=== PATIENT | male | born 1945 | race Caucasian/White ===

== ENCOUNTER → 2016-08-06 | Outpatient (RCR) | payer MEDICARE ==
--- OUTSIDE RECORDS SUMMARY | 2016-05-08 08:45 | XMS REPORT | Continuity of Care Document ---
Author Author [facility] Organization [facility] Address Unknown Phone Unavailable Care Team Providers Care Fresh Foods Technician Name Role Phone SHRADDHA PALENCIA MD PCP Insurance Providers Payer Name Policy Number Subscriber Name Relationship W[employer] Medicare [id number] Fantasma Duncan 16 Self / Same As Patient Advance Directives Directive Response Recorded Date/Time Advance Directives No 04/25/16 10:16am Health Care Power of Vision Teacher No 04/25/16 10:16am Organ Donor No 04/25/16 10:16am Resuscitation Status Full Code 04/25/16 10:16am Problems No problem information available. Medications Current Home Medications Medication Dose Units Route Directions Days/Qty Instructions Start Date Cyproheptadine Hcl 4 Mg 0.5 Tab Oral Four Times Daily 04/25/16 Glipizide 10 Mg 1 Tab Oral Twice A Day 04/25/16 Sodium Bicarbonate/Sodium Cit 1 Each 1 Each Oral As Directed Pioglitazone Hcl 45 Mg 1 Tab Oral Daily 04/25/16 Hydrochlorothiazide 25 Mg 1 Tab Oral Daily 04/25/16 Metoprolol Succinate 50 Mg 1 Tab Oral Twice A Day 04/25/16 Diltiazem Hcl 360 Mg 1 Cap Oral Daily 04/25/16 Insulin Degludec 100 Unit/1 Ml 16 Unit Sub-Q Daily 04/25/16 Social History Social History Problem Response Recorded Date/Time Alcohol Use Denies Use 04/25/2016 10:09am Recreational Drug Use No 04/25/2016 10:09am Recent Foreign Travel No 04/25/2016 10:06am Recent Infectious Disease Exposure No 04/25/2016 10:06am Smoking Status Never a Smoker 04/25/2016 10:09am Recent Hopitalizations No 04/25/2016 10:09am Query Response Start Date Stop Date Smoking Status Never a Smoker Hospital Discharge Instructions No hospital discharge instructions. Plan of Care Discharge Date 04/25/16 2:00pm Instructions/Education Provided BIOPSY DISCHARGE INSTRUCTIONS Prescriptions See Medication Section Functional Status Query Response Date Recorded Patient Orientation Person Place Time Situation Normal For Age April 25, 2016 2:14pm Allergies, Adverse Reactions, Alerts No known allergies. Immunizations No immunization records. Vital Signs Acute Vital Signs Vital Response Date/Time Temperature (Fahrenheit) 97.7 degrees F (97.6 - 99.5) 04/25/2016 2:00pm Temperature (Calculated Celsius) 36.62130 degrees C (36.4 - 37.5) 04/25/2016 2:00pm Temperature Source Temporal 04/25/2016 2:00pm Pulse Rate (adult) 77 bpm (60 - 90) 04/25/2016 2:00pm Respiratory Rate 16 bpm (12 - 24) 04/25/2016 2:00pm O2 Sat by Pulse Oximetry 99 % (88 - 100) 04/25/2016 2:00pm Blood Pressure 141/87 mm Hg 04/25/2016 2:00pm Blood Pressure Mean 105 mm Hg 04/25/2016 2:00pm Blood Pressure 141/87 mm Hg 04/25/2016 2:00pm Pain Numeric Pain Scale 0-No Pain 04/25/2016 2:00pm Pain Numeric Pain Scale 0-No Pain 04/25/2016 2:00pm Height (Feet) 5 feet 04/25/2016 2:00pm Height (Inches) 9.00 inches 04/25/2016 2:00pm Height (Calculated Centimeters) 175.401192 cm 04/25/2016 2:00pm Weight (Pounds) 165 pounds 04/25/2016 2:00pm Weight (Ounces) 0.0 oz 04/25/2016 2:00pm Weight (Calculated Grams) 56261.742 gm 04/25/2016 2:00pm Weight (Calculated Kilograms) 74.691246 kilograms 04/25/2016 2:00pm Calculated BMI 24.4 04/25/2016 10:09am Capillary Refill Capillary Refill Less Than 3 Seconds 04/25/2016 2:00pm Results Pending Laboratory Results Test Name Collection Date/Time Procedures No known history of procedures. Encounters Encounter Location Arrival/Admit Date Discharge/Depart Date Attending Provider Departed [facility] 04/25/16 8:19am 2:00pm SHRADDHA PALENCIA MD Registered Clinic [facility] 04/10/16 7:44am KYM MEEHAN
[2016-07-16 09:52] LABS: BASOPHILS # (AUTO) 0.1 10^3/uL (0.0-0.1); BASOPHILS % (AUTO) 1 % (0-10); EOSINOPHILS # (AUTO) 0.4 10^3/uL (0.0-0.3); EOSINOPHILS % (AUTO) 7 % (0-10); LYMPHOCYTES # (AUTO) 1.4 X 10^3 (1.0-4.0); LYMPHOCYTES % (AUTO) 25 % (12-44); MEAN CORPUSCULAR HEMOGLOBIN 31 PG (25-34); MEAN CORPUSCULAR HGB CONC 32 G/DL (32-36); MEAN CORPUSCULAR VOLUME 95 FL (80-99); MEAN PLATELET VOLUME 8.8 FL (7.4-10.4); MONOCYTES # (AUTO) 0.9 X 10^3 (0.0-1.0); MONOCYTES % (AUTO) 15 % (0-12); NEUTROPHILS # (AUTO) 2.9 X 10^3 (1.8-7.8); NEUTROPHILS % (AUTO) 51 % (42-75); PLATELET COUNT 151 10^3/uL (130-400); RED BLOOD COUNT 2.84 10^6/uL (4.35-5.85); RED CELL DISTRIBUTION WIDTH 15.4 % (10.0-14.5); WHITE BLOOD COUNT 5.6 10^3/uL (4.3-11.0)
[2016-07-16 10:50] LABS: ALANINE AMINOTRANSFERASE < 6 U/L (0-55); ANION GAP 10 MMOL/L (5-14); ASPARTATE AMINO TRANSFERASE 14 U/L (5-34); BILIRUBIN,TOTAL 0.5 MG/DL (0.1-1.0); BLOOD UREA NITROGEN 35 MG/DL (7-18); BUN/CREATININE RATIO 10; CARBON DIOXIDE 29 MMOL/L (21-32); CHLORIDE 100 MMOL/L (98-107); CREATININE SERUM 3.41 MG/DL (0.60-1.30); GFR ESTIMATED 18; GLUCOSE 268 MG/DL (70-105); POTASSIUM 4.1 MMOL/L (3.6-5.0); SODIUM 139 MMOL/L (135-145); TOTAL PROTEIN 6.6 G/DL (6.4-8.2)
[2016-07-23 11:35] LABS: BASOPHILS # (AUTO) 0.1 10^3/uL (0.0-0.1); BASOPHILS % (AUTO) 1 % (0-10); EOSINOPHILS # (AUTO) 0.4 10^3/uL (0.0-0.3); EOSINOPHILS % (AUTO) 7 % (0-10); LYMPHOCYTES # (AUTO) 1.8 X 10^3 (1.0-4.0); LYMPHOCYTES % (AUTO) 30 % (12-44); MEAN CORPUSCULAR HEMOGLOBIN 31 PG (25-34); MEAN CORPUSCULAR HGB CONC 32 G/DL (32-36); MEAN CORPUSCULAR VOLUME 96 FL (80-99); MEAN PLATELET VOLUME 8.6 FL (7.4-10.4); MONOCYTES % (AUTO) 17 % (0-12); NEUTROPHILS # (AUTO) 2.7 X 10^3 (1.8-7.8); NEUTROPHILS % (AUTO) 45 % (42-75); PLATELET COUNT 166 10^3/uL (130-400); RED BLOOD COUNT 2.86 10^6/uL (4.35-5.85); RED CELL DISTRIBUTION WIDTH 15.9 % (10.0-14.5)
[2016-07-30 10:54] LABS: BASOPHILS # (AUTO) 0.1 10^3/uL (0.0-0.1); BASOPHILS % (AUTO) 1 % (0-10); EOSINOPHILS # (AUTO) 0.4 10^3/uL (0.0-0.3); EOSINOPHILS % (AUTO) 6 % (0-10); LYMPHOCYTES # (AUTO) 1.6 X 10^3 (1.0-4.0); LYMPHOCYTES % (AUTO) 25 % (12-44); MEAN CORPUSCULAR HEMOGLOBIN 31 PG (25-34); MEAN CORPUSCULAR HGB CONC 32 G/DL (32-36); MEAN CORPUSCULAR VOLUME 97 FL (80-99); MEAN PLATELET VOLUME 8.7 FL (7.4-10.4); MONOCYTES # (AUTO) 0.9 X 10^3 (0.0-1.0); MONOCYTES % (AUTO) 14 % (0-12); NEUTROPHILS # (AUTO) 3.6 X 10^3 (1.8-7.8); NEUTROPHILS % (AUTO) 55 % (42-75); PLATELET COUNT 166 10^3/uL (130-400); RED BLOOD COUNT 2.95 10^6/uL (4.35-5.85); RED CELL DISTRIBUTION WIDTH 16.7 % (10.0-14.5); WHITE BLOOD COUNT 6.5 10^3/uL (4.3-11.0)
[~2016-08-06] MED LIST: CYPR4TAB PO; DARBEPOETIN 40 MCG/ML (ARANESP) 1 ML VIAL SC SCH; DILT360C30 PO; GLIP10TA13 PO; HYDR25TA4 PO; INSU100I32 SQ; METO-272 PO; PIOG45TA16 PO; SODI1TAB48 PO
[2016-08-06 09:58] LABS: BASOPHILS # (AUTO) 0.1 10^3/uL (0.0-0.1); BASOPHILS % (AUTO) 1 % (0-10); EOSINOPHILS # (AUTO) 0.4 10^3/uL (0.0-0.3); EOSINOPHILS % (AUTO) 7 % (0-10); LYMPHOCYTES # (AUTO) 1.3 X 10^3 (1.0-4.0); LYMPHOCYTES % (AUTO) 21 % (12-44); MEAN CORPUSCULAR HEMOGLOBIN 31 PG (25-34); MEAN CORPUSCULAR HGB CONC 32 G/DL (32-36); MEAN CORPUSCULAR VOLUME 98 FL (80-99); MONOCYTES # (AUTO) 0.9 X 10^3 (0.0-1.0); MONOCYTES % (AUTO) 15 % (0-12); NEUTROPHILS # (AUTO) 3.6 X 10^3 (1.8-7.8); NEUTROPHILS % (AUTO) 57 % (42-75); PLATELET COUNT 155 10^3/uL (130-400); RED BLOOD COUNT 3.27 10^6/uL (4.35-5.85); RED CELL DISTRIBUTION WIDTH 17.1 % (10.0-14.5); RETICULOCYTE % 2.62 % (0.50-2.40); WHITE BLOOD COUNT 6.3 10^3/uL (4.3-11.0)
[2016-08-06 10:45] LABS: ALBUMIN 3.1 G/DL (3.2-4.5); BILIRUBIN,TOTAL 0.4 MG/DL (0.1-1.0); CREATININE SERUM 3.89 MG/DL (0.60-1.30); POTASSIUM 3.5 MMOL/L (3.6-5.0); TOTAL PROTEIN 6.6 G/DL (6.4-8.2)
[2016-08-06 11:05] LABS: THYROID STIMULATING HORMONE 2.05 UIU/ML (0.35-4.94)
== END | disposition home or self-care (01) ==
LOC: ONC 05-08 08:43
PROVIDERS: ATTEND Internal Medicine Hematology & Oncology
DX: C79.51 Secondary malignant neoplasm of bone (principal); D63.1 Anemia in chronic kidney disease; N18.4 Chronic kidney disease, stage 4 (severe)
CPT/HCPCS: 36415; 80053; 82728; 83540; 84443; 85025; 85045; 96372; 99213

== ENCOUNTER → 2016-08-14 | Outpatient (CLI) | payer MEDICARE ==
[~2016-08-14] MED LIST changes: -DARBEPOETIN 40 MCG/ML (ARANESP) 1 ML VIAL SC SCH
--- OUTSIDE RECORDS SUMMARY | 2016-08-14 10:51 | XMS REPORT | Continuity of Care Document ---
Author Author [facility] Organization [facility] Address Unknown Phone Unavailable Care Team Providers Care Manager Multicultural Name Role Phone SHRADDHA PALENCIA MD PCP Insurance Providers Payer Name Policy Number Subscriber Name Relationship Wps Medicare [id number] Fantasma Duncan 16 Self / Same As Patient Advance Directives Directive Response Recorded Date/Time Advance Directives No 04/25/16 10:16am Health Care Power of Processing Manager No 04/25/16 10:16am Organ Donor No 04/25/16 [...] - 99.5) 04/25/2016 2:00pm Temperature (Calculated Celsius) 36.23613 degrees C (36.4 - 37.5) 04/25/2016 2:00pm [...] 9.00 inches 04/25/2016 2:00pm Height (Calculated Centimeters) 175.886394 cm 04/25/2016 2:00pm Weight (Pounds) 165 pounds 04/25/2016 2:00pm Weight (Ounces) 0.0 oz 04/25/2016 2:00pm Weight (Calculated Grams) 94949.742 gm 04/25/2016 2:00pm Weight (Calculated Kilograms) 74.616318 kilograms 04/25/2016 2:00pm Calculated BMI 24.4 04/25/2016 10:09am Capillary Refill Capillary Refill Less Than 3 Seconds 04/25/2016 2:00pm Results Pending Laboratory Results Test Name Collection Date/Time Procedures No known history of procedures. Encounters Encounter Location Arrival/Admit Date Discharge/Depart Date Attending Provider Departed [facility] 04/25/16 8:19am 2:00pm SHRADDHA PALENCIA MD Registered Clinic [facility] 04/10/16 7:44am KYM MEEHAN
== END ==
LOC: RAD 10:47
PROVIDERS: ATTEND Internal Medicine Hematology & Oncology
DX: C64.9 Malignant neoplasm of unspecified kidney, except renal pelvis (principal); N18.4 Chronic kidney disease, stage 4 (severe)

== ENCOUNTER → 2016-08-21 | Outpatient (CLI) | payer MEDICARE ==
--- OUTSIDE RECORDS SUMMARY | 2016-08-21 10:38 | XMS REPORT | Continuity of Care Document ---
Author Author [facility] Organization [facility] Address Unknown Phone Unavailable Care Team Providers Care It Architecture Analyst Name Role Phone SHRADDHA PALENCIA MD PCP Insurance Providers Payer Name Policy Number Subscriber Name Relationship Wps Medicare [id number] Fantasma Duncan 16 Self / Same As Patient Advance Directives Directive Response Recorded Date/Time Advance Directives No 04/25/16 10:16am Health Care Power of Senior Linux Unix Administrator No 04/25/16 10:16am Organ Donor No 04/25/16 [...] - 99.5) 04/25/2016 2:00pm Temperature (Calculated Celsius) 36.05180 degrees C (36.4 - 37.5) 04/25/2016 2:00pm [...] 9.00 inches 04/25/2016 2:00pm Height (Calculated Centimeters) 175.438575 cm 04/25/2016 2:00pm Weight (Pounds) 165 pounds 04/25/2016 2:00pm Weight (Ounces) 0.0 oz 04/25/2016 2:00pm Weight (Calculated Grams) 14572.742 gm 04/25/2016 2:00pm Weight (Calculated Kilograms) 74.700617 kilograms 04/25/2016 2:00pm Calculated BMI 24.4 04/25/2016 10:09am Capillary Refill Capillary Refill Less Than 3 Seconds 04/25/2016 2:00pm Results Pending Laboratory Results Test Name Collection Date/Time Procedures No known history of procedures. Encounters Encounter Location Arrival/Admit Date Discharge/Depart Date Attending Provider Departed [facility] 04/25/16 8:19am 2:00pm SHRADDHA PALENCIA MD Registered Clinic [facility] 04/10/16 7:44am KYM MEEHAN
--- NOTE | 2016-08-21 15:51 | Diagnostic Imaging Report ---
EXAMINATION: PET-CT. TECHNIQUE: Serum glucose level at the time of the study is: 111 mg/dL. 13.2 mCi of FDG was administered intravenously followed by obtaining PET images with corresponding noncontrast CT scan images. The CT scan was performed for anatomic correlation and attenuation correction and was not performed according to the diagnostic protocol of the areas covered. The scan was performed from the head to mid thighs. INDICATION: Renal cell carcinoma. FINDINGS: There is symmetric FDG uptake in the brain. There is no hypermetabolic mass in the neck. There is a destructive hypermetabolic mass seen in the right scapula with a maximum SUV of 7.3. The degree of hypermetabolism is slightly increased compared to the previous exam. There is, however, significant increase in the size of the mass based on CT scan evaluation and the current maximum axial dimensions are 8 x 5.5 cm compared to 5 x 2.4 cm. There is increased bone destruction at this time involving the glenoid and the coracoid process that has worsened compared to the previous exam. There is also at this time more soft tissue fullness extension inferiorly into the axilla suggested. There is no hypermetabolic significant activity seen in the chest otherwise including a medial right upper lobe pulmonary nodule which has FDG uptake similar to background at SUV of 2. The nodule, however, has enlarged in size compared to 04/03/2016 from 0.9 cm to 1.3 cm compatible with metastatic disease. There is also a 7 mm nodule in the medial aspect of the left upper lobe possibly present but smaller on the previous exam, also likely related to metastasis. There is suggestion of other new nodules not seen previously in the lower lobes. In the abdomen and pelvis, lobulated area in the posterior aspect of the right kidney measuring 5 cm is seen and appears larger compared to the prior study. Although this is not associated with significant increased hypermetabolism compared to the rest of the kidney, this is compatible with renal cell carcinoma primary as confirmed with the pathology results. Maximum SUV value in this mass is 4.6. There is mild increased FDG uptake about the right hip with suggestion of right hip effusion. This could be inflammatory related, although early metastasis is not excluded. IMPRESSION: 1. Interval enlargement in right scapular mass and increase in size and number of pulmonary metastases. 2. Lobulated soft tissue fullness in the posterior aspect of the right kidney has increased in size and has mild increased FDG uptake, in correlation with the pathology results, is consistent with the primary renal cell carcinoma. 3. Mild increased FDG uptake at the right hip joint with suggestion of a small effusion is favored to be inflammatory, although early metastasis is not ruled out. Dictated by: Dictated on workstation # [id number]
== END ==
LOC: RAD 10:35
PROVIDERS: ATTEND Internal Medicine Hematology & Oncology
DX: C64.9 Malignant neoplasm of unspecified kidney, except renal pelvis (principal); N18.4 Chronic kidney disease, stage 4 (severe)

== ENCOUNTER → 2016-08-30 | Outpatient (CLI) | payer MEDICARE ==
--- NOTE | 2016-09-03 09:43 | ECHOCARDIOGRAPHY REPORT ---
PROCEDURE PHYSICIAN: CHI NEWBERRY DATE OF PROCEDURE: 08/30/2016 TWO DIMENSIONAL ECHOCARDIOGRAM REPORT PRIMARY PHYSICIAN: Dr. August OTHER PHYSICIAN: REFERRING PHYSICIAN: ORDERING PHYSICIAN: Amy Peralta APRN INDICATION FOR THE PROCEDURE: Cardiomyopathy. MEASUREMENTS DERIVED VALUES LV DIAMETER (LAX) NORMALS NORMALS Diastolic 6.3 (3.6-5.2) Eject. Fract. (60%+/-6%) Systolic (2.3-3.9) Diastolic Vol. % Shortening (0.22-0.42) Systolic Vol. Aortic Root 3.7 IVS THICKNESS Diastolic 1.1 (0.6-1.1) LVPW THICKNESS Diastolic 1.1 (0.6-1.1) LA DIAMETER Systolic 4.7 (2.1-3.7) DESCRIPTION: Two-dimensional echocardiography shows impairment of global left ventricular systolic function. There appears to be global hypokinesis of the left ventricle. Left ventricular ejection fraction approximately 30%. Aortic, mitral and tricuspid valve leaflets show good leaflet excursion. There is no significant pericardial effusion. Doppler imaging shows moderate mitral and tricuspid regurgitation. There is moderate enlargement of the left atrium and the left ventricle. Pulmonary artery systolic pressure is estimated to be approximately 50 mmHg. Doppler imaging shows mild to moderate aortic regurgitation. There is no Doppler evidence of significant valvular stenosis. CONCLUSIONS: 1. Dilated cardiomyopathy with global hypokinesis of the left ventricle. Left ventricular ejection fraction approximately 30%. 2. Moderate enlargement of the atrium and the left ventricle. 3. Moderate mitral and tricuspid regurgitation. 4. Mild to moderate aortic regurgitation. 5. No evidence of significant valvular stenosis. 6. Pulmonary artery systolic pressure is approximately 50 mmHg. Job ID: [id number] Dictated Date: 09/03/2016 09:16:30 Replenishment Merchandising Associate Date: 09/03/2016 09:36:27 / marian
== END ==
LOC: CARD 14:43
PROVIDERS: ATTEND Nurse Practitioner Adult Health
DX: R09.89 Other specified symptoms and signs involving the circulatory and respiratory systems (principal)
CPT/HCPCS: 93306

== ENCOUNTER → 2016-09-11 | Outpatient (CLI) | payer MEDICARE ==
[2016-09-11 15:31] LABS: BASOPHILS # (AUTO) 0.1 10^3/uL (0.0-0.1); BASOPHILS % (AUTO) 1 % (0-10); EOSINOPHILS % (AUTO) 1 % (0-10); LYMPHOCYTES % (AUTO) 19 % (12-44); MEAN CORPUSCULAR HEMOGLOBIN 31 PG (25-34); MEAN CORPUSCULAR HGB CONC 33 G/DL (32-36); MEAN CORPUSCULAR VOLUME 93 FL (80-99); MEAN PLATELET VOLUME 10.8 FL (7.4-10.4); MONOCYTES # (AUTO) 0.5 X 10^3 (0.0-1.0); MONOCYTES % (AUTO) 10 % (0-12); NEUTROPHILS % (AUTO) 70 % (42-75); PLATELET COUNT 67 10^3/uL (130-400); RED BLOOD COUNT 4.04 10^6/uL (4.35-5.85); RED CELL DISTRIBUTION WIDTH 17.3 % (10.0-14.5); WHITE BLOOD COUNT 5.6 10^3/uL (4.3-11.0)
== END ==
LOC: LAB 15:13
PROVIDERS: ATTEND Internal Medicine
DX: D69.6 Thrombocytopenia, unspecified (principal)
CPT/HCPCS: 85025

== ENCOUNTER 2016-09-25 14:46 | Outpatient (RCR) | payer MEDICARE ==
--- OUTSIDE RECORDS SUMMARY | 2016-08-13 10:35 | XMS REPORT | Continuity of Care Document ---
Author Author [facility] Organization [facility] Address Unknown Phone Unavailable Care Team Providers Care Food Service Representative Name Role Phone SHRADDHA PALENCIA MD PCP Insurance Providers Payer Name Policy Number Subscriber Name Relationship Wps Medicare [id number] Fantasma Duncan 16 Self / Same As Patient Advance Directives Directive Response Recorded Date/Time Advance Directives No 04/25/16 10:16am Health Care Power of Shear Scrapman No 04/25/16 10:16am Organ Donor No 04/25/16 [...] - 99.5) 04/25/2016 2:00pm Temperature (Calculated Celsius) 36.05872 degrees C (36.4 - 37.5) 04/25/2016 2:00pm [...] 9.00 inches 04/25/2016 2:00pm Height (Calculated Centimeters) 175.595254 cm 04/25/2016 2:00pm Weight (Pounds) 165 pounds 04/25/2016 2:00pm Weight (Ounces) 0.0 oz 04/25/2016 2:00pm Weight (Calculated Grams) 76742.742 gm 04/25/2016 2:00pm Weight (Calculated Kilograms) 74.508522 kilograms 04/25/2016 2:00pm Calculated BMI 24.4 04/25/2016 10:09am Capillary Refill Capillary Refill Less Than 3 Seconds 04/25/2016 2:00pm Results Pending Laboratory Results Test Name Collection Date/Time Procedures No known history of procedures. Encounters Encounter Location Arrival/Admit Date Discharge/Depart Date Attending Provider Departed [facility] 04/25/16 8:19am 2:00pm SHRADDHA PALENCIA MD Registered Clinic [facility] 04/10/16 7:44am KYM MEEHAN
[2016-08-13 11:21] LABS: BASOPHILS # (AUTO) 0.1 10^3/uL (0.0-0.1); BASOPHILS % (AUTO) 1 % (0-10); EOSINOPHILS # (AUTO) 0.4 10^3/uL (0.0-0.3); EOSINOPHILS % (AUTO) 6 % (0-10); LYMPHOCYTES # (AUTO) 1.7 X 10^3 (1.0-4.0); LYMPHOCYTES % (AUTO) 27 % (12-44); MEAN CORPUSCULAR HEMOGLOBIN 31 PG (25-34); MEAN CORPUSCULAR HGB CONC 32 G/DL (32-36); MEAN CORPUSCULAR VOLUME 97 FL (80-99); MEAN PLATELET VOLUME 9.1 FL (7.4-10.4); MONOCYTES # (AUTO) 0.9 X 10^3 (0.0-1.0); MONOCYTES % (AUTO) 14 % (0-12); NEUTROPHILS # (AUTO) 3.4 X 10^3 (1.8-7.8); NEUTROPHILS % (AUTO) 52 % (42-75); PLATELET COUNT 144 10^3/uL (130-400); RED BLOOD COUNT 3.55 10^6/uL (4.35-5.85); RED CELL DISTRIBUTION WIDTH 16.3 % (10.0-14.5); WHITE BLOOD COUNT 6.4 10^3/uL (4.3-11.0)
[2016-08-24 10:01] LABS: BASOPHILS # (AUTO) 0.1 10^3/uL (0.0-0.1); BASOPHILS % (AUTO) 2 % (0-10); EOSINOPHILS # (AUTO) 0.2 10^3/uL (0.0-0.3); EOSINOPHILS % (AUTO) 6 % (0-10); LYMPHOCYTES # (AUTO) 1.1 X 10^3 (1.0-4.0); LYMPHOCYTES % (AUTO) 25 % (12-44); MEAN CORPUSCULAR HEMOGLOBIN 31 PG (25-34); MEAN CORPUSCULAR HGB CONC 32 G/DL (32-36); MEAN CORPUSCULAR VOLUME 96 FL (80-99); MEAN PLATELET VOLUME 9.5 FL (7.4-10.4); MONOCYTES # (AUTO) 0.8 X 10^3 (0.0-1.0); MONOCYTES % (AUTO) 19 % (0-12); NEUTROPHILS # (AUTO) 2.1 X 10^3 (1.8-7.8); NEUTROPHILS % (AUTO) 49 % (42-75); PLATELET COUNT 107 10^3/uL (130-400); RED BLOOD COUNT 3.47 10^6/uL (4.35-5.85); RED CELL DISTRIBUTION WIDTH 15.5 % (10.0-14.5); WHITE BLOOD COUNT 4.3 10^3/uL (4.3-11.0)
[2016-08-27 09:35] LABS: BASOPHILS # (AUTO) 0.1 10^3/uL (0.0-0.1); BASOPHILS % (AUTO) 2 % (0-10); EOSINOPHILS # (AUTO) 0.3 10^3/uL (0.0-0.3); EOSINOPHILS % (AUTO) 7 % (0-10); LYMPHOCYTES # (AUTO) 1.2 X 10^3 (1.0-4.0); LYMPHOCYTES % (AUTO) 24 % (12-44); MEAN CORPUSCULAR HEMOGLOBIN 31 PG (25-34); MEAN CORPUSCULAR HGB CONC 32 G/DL (32-36); MEAN CORPUSCULAR VOLUME 96 FL (80-99); MEAN PLATELET VOLUME 8.9 FL (7.4-10.4); MONOCYTES # (AUTO) 0.8 X 10^3 (0.0-1.0); MONOCYTES % (AUTO) 16 % (0-12); NEUTROPHILS # (AUTO) 2.7 X 10^3 (1.8-7.8); NEUTROPHILS % (AUTO) 52 % (42-75); PLATELET COUNT 159 10^3/uL (130-400); RED BLOOD COUNT 3.56 10^6/uL (4.35-5.85); RED CELL DISTRIBUTION WIDTH 15.8 % (10.0-14.5); WHITE BLOOD COUNT 5.2 10^3/uL (4.3-11.0)
[2016-08-27 10:27] LABS: ALBUMIN 3.1 G/DL (3.2-4.5); BILIRUBIN,TOTAL 0.5 MG/DL (0.1-1.0); CALCIUM 9.3 MG/DL (8.5-10.1); CREATININE SERUM 3.65 MG/DL (0.60-1.30); POTASSIUM 3.9 MMOL/L (3.6-5.0); TOTAL PROTEIN 6.9 G/DL (6.4-8.2)
[2016-08-27 11:40] LABS: BILIRUBIN,URINE NEGATIVE (NEGATIVE); KETONES,URINE NEGATIVE (NEGATIVE); LEUKOCYTE ESTERASE ,URINE 1+ (NEGATIVE); NITRITE,URINE NEGATIVE (NEGATIVE); PH,URINE 8 (5-9); PROTEIN,URINE 4+ (NEGATIVE); UROBILINOGEN,URINE NORMAL (NORMAL)
[2016-08-27 11:45] LABS: THYROID STIMULATING HORMONE 1.92 UIU/ML (0.35-4.94)
[2016-08-27 12:05] LABS: WBC,URINE RARE /HPF
[2016-09-10 09:49] LABS: BASOPHILS # (AUTO) 0.1 10^3/uL (0.0-0.1); BASOPHILS % (AUTO) 2 % (0-10); EOSINOPHILS # (AUTO) 0.2 10^3/uL (0.0-0.3); EOSINOPHILS % (AUTO) 3 % (0-10); LYMPHOCYTES # (AUTO) 1.7 X 10^3 (1.0-4.0); LYMPHOCYTES % (AUTO) 27 % (12-44); MEAN CORPUSCULAR HEMOGLOBIN 32 PG (25-34); MEAN CORPUSCULAR HGB CONC 34 G/DL (32-36); MEAN CORPUSCULAR VOLUME 94 FL (80-99); MEAN PLATELET VOLUME 10.5 FL (7.4-10.4); MONOCYTES # (AUTO) 0.6 X 10^3 (0.0-1.0); MONOCYTES % (AUTO) 10 % (0-12); NEUTROPHILS # (AUTO) 3.6 X 10^3 (1.8-7.8); NEUTROPHILS % (AUTO) 59 % (42-75); PLATELET COUNT 66 10^3/uL (130-400); RED BLOOD COUNT 3.97 10^6/uL (4.35-5.85); RED CELL DISTRIBUTION WIDTH 16.6 % (10.0-14.5); WHITE BLOOD COUNT 6.1 10^3/uL (4.3-11.0)
[2016-09-10 10:29] LABS: ALBUMIN 3.4 G/DL (3.2-4.5); BILIRUBIN,TOTAL 0.6 MG/DL (0.1-1.0); CALCIUM 8.3 MG/DL (8.5-10.1); CREATININE SERUM 5.45 MG/DL (0.60-1.30); POTASSIUM 4.1 MMOL/L (3.6-5.0); TOTAL PROTEIN 6.6 G/DL (6.4-8.2)
[~2016-09-25 14:46] MED LIST changes: +DARBEPOETIN 40 MCG/ML (ARANESP) 1 ML VIAL SC SCH
== END 2016-11-11 | disposition home or self-care (01) ==
LOC: ONC 14:46
PROVIDERS: ATTEND Internal Medicine Hematology & Oncology
DX: C64.1 Malignant neoplasm of right kidney, except renal pelvis (principal); C79.51 Secondary malignant neoplasm of bone; C78.02 Secondary malignant neoplasm of left lung; D69.6 Thrombocytopenia, unspecified; D63.1 Anemia in chronic kidney disease; N18.4 Chronic kidney disease, stage 4 (severe); I13.0 Hypertensive heart and chronic kidney disease with heart failure and stage 1 through stage 4 chronic kidney disease, or unspecified chronic kidney disease; I50.9 Heart failure, unspecified; E11.22 Type 2 diabetes mellitus with diabetic chronic kidney disease; I48.91 Unspecified atrial fibrillation; I25.2 Old myocardial infarction; Z95.5 Presence of coronary angioplasty implant and graft; Z99.2 Dependence on renal dialysis; Z79.899 Other long term (current) drug therapy; Z79.4 Long term (current) use of insulin
CPT/HCPCS: 36415; 80053; 81000; 82728; 83540; 83615; 84443; 85025; 96372; 99213

== ENCOUNTER 2016-11-12 00:14 | Outpatient (RCR) | payer MEDICARE ==
[~2016-11-12 00:14] MED LIST changes: -DARBEPOETIN 40 MCG/ML (ARANESP) 1 ML VIAL SC SCH; -PIOG45TA16 PO; +PIOG45TA18 PO
[2016-11-19] MEDS ORDERED: DARBEPOETIN 40 MCG/ML (ARANESP) 1 ML VIAL SC SCH (08:17)
[2016-11-26] MEDS ORDERED: DARBEPOETIN 40 MCG/ML (ARANESP) 1 ML VIAL SC SCH (08:16)
[2016-12-17] MEDS ORDERED: DARBEPOETIN 40 MCG/ML (ARANESP) 1 ML VIAL SC SCH (08:01)
[2017-01-21] MEDS ORDERED: DARBEPOETIN 40 MCG/ML (ARANESP) 1 ML VIAL SC SCH (07:53)
[2017-01-28] MEDS ORDERED: DARBEPOETIN 40 MCG/ML (ARANESP) 1 ML VIAL SC SCH (08:06)
== END 2017-02-18 | disposition home or self-care (01) ==
LOC: ONC 00:14
PROVIDERS: ATTEND Internal Medicine Hematology & Oncology
DX: C64.9 Malignant neoplasm of unspecified kidney, except renal pelvis (principal); C79.51 Secondary malignant neoplasm of bone; D63.1 Anemia in chronic kidney disease; N18.4 Chronic kidney disease, stage 4 (severe); I12.9 Hypertensive chronic kidney disease with stage 1 through stage 4 chronic kidney disease, or unspecified chronic kidney disease; E11.22 Type 2 diabetes mellitus with diabetic chronic kidney disease; Z99.2 Dependence on renal dialysis; Z79.899 Other long term (current) drug therapy

== ENCOUNTER → 2019-11-27 | Outpatient (CLI) | payer MEDICARE ==
[~2019-11-27] MED LIST changes: -CYPR4TAB PO; +CYPR4TAB41 PO; +GADOBUTROL 7.5 MMOL/7.5 ML (GADAVIST) VIAL IV ONE; -METO-272 PO; +METO50TA7 PO; -PIOG45TA18 PO; +PIOG45TA65 PO
--- NOTE | 2019-11-27 16:56 | Diagnostic Imaging Report ---
PROCEDURE: MRI lumbar spine with and without contrast. TECHNIQUE: Multiplanar, multisequence MRI of the lumbar spine was performed with and without contrast. INDICATION: Low back pain. History of renal cancer on the right. COMPARISON: PET/CT from 08/21/2016. FINDINGS: Straightening of lumbar spine is present. No fracture or marrow replacing process. There is some T2 hyperintense signal within the L4-L5 disc space and there is very minimal enhancement around the margins of the disc and endplate. There is no associated marrow edema within the adjacent endplates. Minimal enhancement along the endplates of L5-S1 is also present. There are degenerative irregularities of the endplates at L4-L5 and L5-S1. The distal thoracic cord is normal in appearance. No epidural mass or enhancing process. Mild atrophy of the paravertebral musculature is likely from disuse. Both kidneys are atrophic. Cystic changes noted in the lower pole of the right kidney. L1-L2: Disc bulging does not result in spinal stenosis or significant foraminal narrowing. L2-L3: Circumferential disc bulging does not result in spinal stenosis or significant foraminal narrowing. L3-L4: Circumferential disc bulge with mild facet osteoarthritis causes mild spinal stenosis. There is compression of the nerve roots in the lateral recess. Mild bilateral neuroforaminal narrowing due to intervertebral height loss. L4-L5: Complete intervertebral height loss, irregular areas of endplate that are highly favor degenerative nature. Cervical vertebral disc bulge with posterior endplate ridging is present. Moderate facet osteoporosis. This results in moderate spinal stenosis but no compression of the nerve roots in the lateral recess. [id number] bilateral foraminal narrowing is present. L5-S1: Circumferential disc bulge with coexistent central disc protrusion. This results in severe narrowing of the lateral recess on the left and potential impingement of the left S1 nerve root. Moderate bilateral foraminal narrowing due to intervertebral height loss and posterior endplate ridging. IMPRESSION: 1. No metastatic disease in the lumbar spine. 2. Multilevel degenerative changes are greatest at L4-L5 and L5-S1. At L5-S1, there is disc protrusion potentially causing impingement of the left S1 nerve root. Dictated by: Dictated on workstation # [id number]
== END ==
LOC: RAD 13:11
PROVIDERS: ATTEND Internal Medicine Hospice and Palliative Medicine
DX: M47.816 Spondylosis without myelopathy or radiculopathy, lumbar region (principal); M51.27 Other intervertebral disc displacement, lumbosacral region; C64.1 Malignant neoplasm of right kidney, except renal pelvis; C79.51 Secondary malignant neoplasm of bone
CPT/HCPCS: 72158